=== PATIENT | male | born 1960 | race Caucasian/White ===

== ENCOUNTER 2017-12-04 13:35 | Emergency (ER) | payer BC, OTHER ==
--- NOTE | 2017-12-04 15:00 | Emergency Department Record ---
History of Present Illness - General Chief complaint: Flank Pain Stated complaint: RT SIDE KIDNEY STONE Time Seen by Provider: 12/04/17 14:55 Source: Patient, RN notes reviewed Mode of Arrival: Ambulatory - History of Present Illness Initial comments: right flank pain and history of kidney stones and it has been on and off for 2 months and he has not seen his DrPrakash in 20 years. - Related Data Previous Rx's Medication Instructions Recorded Hydrocodone/Acetaminophen [[place] 1 each PO Q6HR #14 tablet 12/04/17 5-325 Tablet] Allergies Allergy/AdvReac Type Severity Reaction Status Date / Time No Known Drug Allergies Allergy Verified 12/04/17 15:08 Review of Systems Reviewed: No additional complaints except as noted below Constitutional: Reports: As per HPI. Denies: Chills, Fever, Malaise, Night sweats, Weakness, Weight change Eyes: Reports: As per HPI. Denies: Eye discharge, Eye pain, Photophobia, Vision change ENT: Reports: As per HPI. Denies: Congestion, Dental pain, Ear pain, Epistaxis , Hearing loss, Throat pain Respiratory: Reports: As per HPI. Denies: Cough, Dyspnea, Hemoptysis, Stridor, Wheezes Cardiovascular: Reports: As per HPI. Denies: Arrhythmia, Chest pain, Dyspnea on exertion, Edema, Murmurs, Orthopnea, Palpitations, Paroxysmal nocturnal dyspnea, Rheumatic Fever, Syncope Endocrine: Reports: As per HPI. Denies: Fatigue, Heat or cold intolerance, Polydipsia, Polyuria Gastrointestinal: Reports: As per HPI, Abdominal pain. Denies: Constipation, Diarrhea, Hematemesis, Hematochezia, Melena, Nausea, Vomiting Genitourinary: Reports: As per HPI. Denies: Dysuria, Frequency, Hematuria, Incontinence, Retention, Testicular pain, Testicular mass, Urgency Musculoskeletal: Reports: As per HPI. Denies: Arthralgia, Back pain, Gout, Joint swelling, Myalgia, Neck pain Skin: Reports: As per HPI. Denies: Bruising, Change in color, Change in hair/ nails, Lesions, Pruritus, Rash Neurological: Reports: As per HPI. Denies: Abnormal gait, Confusion, Headache, Numbness, Paresthesias, Seizure, Tingling, Tremors, Vertigo, Weakness Psychiatric: Reports: As per HPI. Denies: Anxiety, Auditory hallucinations, Depression, Homicidal thoughts, Suicidal thoughts, Visual hallucinations Hematological/Lymphatic: Reports: As per HPI. Denies: Anemia, Blood Clots, Easy bleeding, Easy bruising, Swollen glands Physical Exam - General General Appearance: Alert, Oriented x3, Cooperative, No acute distress - Head Head exam: Normal inspection - Eye Eye exam: Normal appearance, PERRL Pupils: Normal accommodation - ENT ENT exam: Normal exam, Mucous membranes moist, Normal external ear exam, Normal orophraynx, TM's normal bilaterally Ear exam: Normal external inspection. negative: External canal tenderness Nasal Exam: Normal inspection. negative: Discharge, Sinus tenderness Mouth exam: Normal external inspection, Tongue normal Teeth exam: Normal inspection. negative: Dental caries Throat exam: Normal inspection. negative: Tonsillar erythema, Tonsillar exudate - Neck Neck exam: Normal inspection, Full ROM. negative: Tenderness - Respiratory Respiratory exam: Normal lung sounds bilaterally. negative: Respiratory distress - Cardiovascular Cardiovascular Exam: Regular rate, Normal rhythm, Normal heart sounds - GI/Abdominal GI/Abdominal exam: Soft, Normal bowel sounds, Tenderness (right flank pain) - Rectal Rectal exam: Deferred - exam: Deferred - Extremities Extremities exam: Normal inspection, Full ROM, Normal capillary refill. negative: Tenderness - Back Back exam: Reports: Normal inspection, Full ROM. Denies: Muscle spasm, Rash noted, Tenderness - Neurological Neurological exam: Alert, Normal gait, Oriented X3, Reflexes normal - Psychiatric Psychiatric exam: Normal affect, Normal mood - Skin Skin exam: Dry, Intact, Normal color, Warm Course - Reevaluation(s) Reevaluation #1: discussed case with Dr. 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 Xiong on return fever or vomiting or severe pain Prescriptions: Hydrocodone/Acetaminophen [[place] 5-325 Tablet] 1 each PO Q6HR #14 tablet Forms: Patient Portal Access Time of Disposition: 16:52 Quality - Quality Measures Quality Measures: N/A - Blood Pressure Screening Does Patient Have Any of the Following: No Blood Pressure Classification: Hypertensive Reading Systolic Measurement: 138 Diastolic Measurement: 100 Screening for High Blood Pressure: < First Hypertensive BP, F/U Documented > [ G8950] First Hypertensive Follow-up Interventions: Referral to alternative/primary care provider.
[2017-12-04 15:53] LABS: URINE APPEARANCE CLEAR; URINE BILIRUBIN NEGATIVE (NEGATIVE); URINE BLOOD MODERATE (NEGATIVE); URINE COLOR YELLOW; URINE GLUCOSE (UA) NEGATIVE (NEGATIVE); URINE KETONE TRACE (NEGATIVE); URINE LEUKOCYTE ESTERASE TRACE (NEGATIVE); URINE NITRITE NEGATIVE (NEGATIVE); URINE UROBILINOGEN 0.2 E.U./dL (0.20 - 1.00)
[2017-12-04 15:54] LABS: BASO % 1.1 % (0-6); EOS % 0.4 % (0-6); GRAN % 60.4 % (47-80); HEMATOCRIT 47.1 % (42.0-52.0); HEMOGLOBIN 15.9 gm/dl (14.0-18.0); LYMPH % 24.3 % (16-45); MEAN CELL VOLUME 98.5 fl (81-97); MEAN CORPUSCULAR HEMOGLOBIN 33.3 pg (27-33); MEAN CORPUSCULAR HGB CONC 33.8 g/dl (32-36); MEAN PLATELET VOLUME 8.4 fl (7.4-10.4); MONO % 13.8 % (0-9); PLATELET COUNT 214 K/uL (130-400); RED BLOOD COUNT 4.78 M/uL (4.40-5.70); RED CELL DISTRIBUTION WIDTH 12.2 % (11.5-14.5); WHITE BLOOD COUNT W/O DIFF 2.7 K/uL (4.2-12.2)
[2017-12-04 16:03] LABS: URINE MUCUS MODERATE; URINE RBC 36 - 50 (NONE SEEN)
[2017-12-04 16:05] LABS: BLOOD UREA NITROGEN 15 mg/dL (6-20); CREATININE 0.8 mg/dL (0.7-1.2); EST GLOMERULAR FILTRATION RATE > 60 mL/min
[2017-12-04 16:06] LABS: TOTAL PROTEIN 7.3 g/dL (6.6-8.7)
[2017-12-04 16:08] LABS: GLUCOSE,RANDOM 97 mg/dL (74-109)
[2017-12-04 16:10] LABS: ALT/SGPT 22 U/L (<41)
[2017-12-04 16:11] LABS: ALBUMIN 4.3 g/dL (4.0-5.0); ALKALINE PHOSPHATASE 69 U/L (40-129); AST/SGOT 29 U/L (10.0-50.0); BILIRUBIN,DIRECT < 0.2 mg/dL (0-0.3); LIPASE 27 U/L (13-60)
--- NOTE | 2017-12-06 08:41 | CT SCAN REPORT ---
EXAM: CT OF THE ABDOMEN AND PELVIS WITHOUT CONTRAST HISTORY: RIGHT FLANK PAIN. TECHNIQUE: CT of the abdomen and pelvis was performed without oral or IV contrast. This limits evaluation of bowel and solid visceral organs. Comparison: None. FINDINGS: Limited evaluation of the lung bases shows emphysematous changes bilaterally. The osseous structures are grossly intact. Limited evaluation of the liver, spleen, adrenal glands, and pancreas is unremarkable. Nonobstructing staghorn type calculus of the left kidney with maximal diameter 10.3 mm. There is a large calculus measuring 14.5 mm in the region of the right UPJ with mild right sided hydronephrosis. In addition there are multiple other nonobstructing calculi in the inferior pole of the right kidney. No other definitive urinary tract calculi. There is a large amount of stool in the colon. The urinary bladder is not distended. Subjective urinary bladder wall thickening. Multiple calcifications of the prostate. Correlate with PSA levels. The appendix is not well seen. No pericecal inflammation. The gallbladder is present. IMPRESSION: 1. NONOBSTRUCTING RENAL CALCULI BILATERALLY. IN ADDITION THERE IS A 14.5 MM RIGHT UPJ CALCULUS WITH MILD RIGHT HYDRONEPHROSIS. 2. SUBJECTIVE URINARY BLADDER WALL THICKENING. 3. LARGE AMOUNT OF STOOL IN THE COLON. 4. MULTIPLE CALCIFICATIONS OF THE PROSTATE. CORRELATE WITH PSA LEVELS. JOB NUMBER: [id number] [facility]
== END 2017-12-04 17:02 | disposition home or self-care (01) ==
LOC: ER 13:35
DX: N13.2 Hydronephrosis with renal and ureteral calculous obstruction (principal); Z87.442 Personal history of urinary calculi
CPT/HCPCS: 74176; 80048; 80076; 81001; 83690; 85025; 99283; 99284

== ENCOUNTER 2018-08-14 14:13 | Emergency (ER) | payer BC, OTHER ==
--- NOTE | 2018-08-14 14:37 | Emergency Department Record ---
History of Present Illness - General Chief Complaint: Back Pain/Injury Stated Complaint: PAIN IN LOWER BACK Time Seen by Provider: 08/14/18 14:20 Source: Patient Mode of Arrival: Ambulatory Limitations: No limitations - History of Present Illness Initial Comments: The patient is here due to mild L lower back pain and flank pain for the last 6 days. The pain is sharp and stabbing and is not associated with nausea, vomiting , fever, hematuria, or dysuria. The patient has had kidney stones in the past similar to this. He also denies any abdominal pain or diarrhea. MD Complaint: Back pain Onset/Timin -: Days(s) Associated Symptoms: Denies other symptoms - Related Data Previous Rx's Medication Instructions Recorded Cephalexin [Keflex] 500 mg PO QID #28 cap 08/14/18 Naproxen [Naprosyn] 500 mg PO BID #14 tablet. 08/14/18 Allergies Allergy/AdvReac Type Severity Reaction Status Date / Time No Known Drug Allergies Allergy Verified 12/04/17 15:08 Travel Screening - Travel/Exposure Within Last 30 Days Have you traveled within the last 30 days?: No - Travel/Exposure Within Last Year Have you traveled outside the [place] in the last year?: No - Additonal Travel Details Have you been exposed to anyone with a communicable illness?: No - Travel Symptoms Symptom Screening: None Review of Systems Constitutional: Denies: Chills, Fever Eyes: Denies: Eye discharge ENT: Denies: Congestion Respiratory: Denies: Cough, Dyspnea Past Medical History - SOCIAL HISTORY Smoking Status: Never smoker Alcohol Use: None Drug Use: None - RESPIRATORY Hx Respiratory Disorders: No - CARDIOVASCULAR Hx Cardio Disorders: No - NEURO Hx Neuro Disorders: No - GI Hx GI Disorders: No - Hx Genitourinary Disorders: Yes Hx Kidney Stones: Yes - ENDOCRINE Hx Endocrine Disorders: No - MUSCULOSKELETAL Hx Musculoskeletal Disorders: No - PSYCH Hx Psych Problems: No - HEMATOLOGY/ONCOLOGY Hx Hematology/Oncology Disorders: No Family Medical History Any Significant Family History?: No Hx Heart Disease: Father Hx Kidney Disease: Father Physical Exam - General General Appearance: Alert, Oriented x3, Cooperative, No acute distress (The patient is very calm and comfortable in appearance.) - Head Head exam: Atraumatic, Normocephalic, Normal inspection - Eye Eye exam: Normal appearance, PERRL, EOMI - ENT Throat exam: Normal inspection. negative: Tonsillar erythema, Tonsillar exudate - Neck Neck exam: Normal inspection, Full ROM. negative: Tenderness - Respiratory Respiratory exam: Normal lung sounds bilaterally. negative: Respiratory distress - Cardiovascular Cardiovascular Exam: Regular rate, Normal rhythm, Normal heart sounds - GI/Abdominal GI/Abdominal exam: Soft, Normal bowel sounds. negative: Tenderness - Extremities Extremities exam: Normal inspection, Full ROM, Normal capillary refill. negative: Tenderness - Back Back exam: Reports: Normal inspection, Paraspinal tenderness (The pain is very reproducible with palpation over the L lower lumbar area.). Denies: Vertebral tenderness - Neurological Neurological exam: Alert. negative: Motor sensory deficit Course Vital Signs 08/14/18 14:17 Temperature 98.5 F Pulse Rate 88 Respiratory 18 Rate Blood Pressure 145/96 Pulse Ox 99 - Reevaluation(s) Reevaluation #1: The patient is doing well at this time and is pain free. He denies any fever, chills, or vomiting. I did discuss the large stones in the kidney and ureters with the blockage on the L with the patient and the need for f/u. I also did discuss the case at length with Dr. Tobar (Urology) and due to the fact the patient is pain free, has no fever, or WBC elevation, he would like to see the patient in the office at 8:30 am tomorrow. The patient agrees with the plan and will comply. I also did discuss the need to return for any worsening pain, fever , vomiting, or difficulty urinating. 08/14/18 16:11 Medical Decision Making - Data Complexity MDM Data: Labs Ordered and/or Reviewed, X-Ray Ordered and/or Reviewed - Lab Data Result diagrams: 08/14/18 14:55 08/14/18 14:55 - Radiology Data Radiology results: Report reviewed (Abd CT: 04/30/17 L UPJ calculus with hydro and perinephric stranding. Large stones in R kidney with no hydro.) Disposition Disposition: Discharge Clinical Impression: Ureteral stone with hydronephrosis Disposition: Home, Self-Care Condition: (2) Stable Instructions: Ureteral Stones (ED) Additional Instructions: Please drink plenty of fluids and take Naprosyn for pain. Please also take the Keflex as directed. Please see Dr. Tobar at the [facility] at 8:30 am tomorrow in [place]. Return to the ER for any worsening pain, fever, vomiting, or decreased urine output. Prescriptions: Cephalexin [Keflex] 500 mg PO QID #28 cap Naproxen [Naprosyn] 500 mg PO BID #14 tablet. Referrals: YANE TOBAR [] - Forms: Patient Portal Access Time of Disposition: 16:16 Quality - Quality Measures Quality Measures: N/A - Blood Pressure Screening View Details: Yes Does Patient Have Any of the Following: No Blood Pressure Classification: Hypertensive Reading Systolic Measurement: 156 Diastolic Measurement: 94 Screening for High Blood Pressure: < First Hypertensive BP, F/U Documented > [ G8950] First Hypertensive Follow-up Interventions: Referral to alternative/primary care provider.
[2018-08-14 14:58] LABS: HEMATOCRIT 41.2 % (42.0-52.0); HEMOGLOBIN 14.4 gm/dl (14.0-18.0); MEAN CELL VOLUME 94.9 fl (81-97); MEAN PLATELET VOLUME 8.4 fl (7.4-10.4); PLATELET COUNT 294 K/uL (130-400); RED BLOOD COUNT 4.34 M/uL (4.40-5.70); URINE APPEARANCE CLEAR; URINE BILIRUBIN NEGATIVE (NEGATIVE); URINE BLOOD LARGE (NEGATIVE); URINE COLOR YELLOW; URINE GLUCOSE (UA) NEGATIVE (NEGATIVE); URINE KETONE NEGATIVE (NEGATIVE); URINE LEUKOCYTE ESTERASE SMALL (NEGATIVE); URINE NITRITE NEGATIVE (NEGATIVE); URINE UROBILINOGEN 0.2 E.U./dL (0.20 - 1.00); WHITE BLOOD COUNT W/O DIFF 7.9 K/uL (4.2-12.2)
[2018-08-14 14:59] LABS: MEAN CORPUSCULAR HEMOGLOBIN 33.1 pg (27-33)
[2018-08-14 15:07] LABS: BLOOD UREA NITROGEN 23 mg/dL (6-20); CREATININE 1.2 mg/dL (0.7-1.2); EST GLOMERULAR FILTRATION RATE > 60 mL/min
[2018-08-14 15:08] LABS: URINE BACTERIA 1+
[2018-08-14 15:10] LABS: GLUCOSE,RANDOM 100 mg/dL (74-109)
[2018-08-14] MEDS ORDERED: CEFTRIAXONE 1GM/50ML BAG 1 GM/50 ML BAG IVPB ONE (15:10)
[2018-08-14] MEDS ORDERED: KETOROLAC 30 MG/ML VIAL IVP ONE (15:13)
--- NOTE | 2018-08-18 08:54 | CT SCAN REPORT ---
EXAM: CT OF THE ABDOMEN AND PELVIS WITHOUT CONTRAST HISTORY: LEFT FLANK PAIN FOR SIX DAYS. TECHNIQUE: Thin collimation helical CT examination of the abdomen and pelvis was performed without oral or intravenous contrast administration. Lack of oral and IV contrast utilization limits evaluation of the bowel and solid viscera respectively. FINDINGS: There has been interval migration of the previously demonstrated large calculus in the lower pole of the left kidney to the level of the left ureteropelvic junction. This causes severe left hydronephrosis and there is moderate perinephric fat stranding. This calculus measures approximately 11 x 7 x 17 mm. There is redemonstration of a large stone within the right renal collecting system pelvis. This does not cause obstruction. This measures approximately 14 x 17 x 10 mm. There are two stones within the lower pole of the right kidney with the largest measuring 6 mm in diameter. No other nephrolithiasis. The right renal collecting system is not dilated. Evaluation of the urinary bladder is limited by lack of distention. No pelvic mass or adenopathy. There is a small amount of free fluid in the pelvis and right abdomen. No gross bowel dilatation nor bowel wall thickening. The appendix is not visualized with confidence. There is a large amount of stool within the colon. No new focal abnormality demonstrated in the liver, spleen, pancreas, nor adrenal glands. The gallbladder is unremarkable and no biliary ductal dilatation is seen. Levoconvex curvature of the lumbar spine is redemonstrated. No new lytic or blastic bone lesion. There is again noted a small focus of sclerosis in the right superior pubic ramus. This is nonspecific, but likely a bone island. There is elevation of the left hemidiaphragm. The lung bases are grossly clear. No pleural or pericardial effusion. IMPRESSION: 1. INTERVAL MIGRATION OF THE PREVIOUSLY DEMONSTRATED LARGE CALCULUS IN THE LOWER POLE OF THE LEFT KIDNEY TO THE LEVEL OF THE LEFT URETEROPELVIC JUNCTION WHERE IT CAUSES OBSTRUCTION WITH SEVERE LEFT HYDRONEPHROSIS AND MODERATE PERINEPHRIC FAT STRANDING. THIS CALCULUS MEASURES 11 X 7 X 17 MM. 2. LARGE CALCULUS AGAIN NOTED IN THE RIGHT RENAL COLLECTING SYSTEM PELVIS WITHOUT GROSS OBSTRUCTION. NONOBSTRUCTING CALCULI IN THE LOWER POLE OF THE RIGHT KIDNEY. 3. SMALL VOLUME OF ASCITES OF UNCERTAIN ETIOLOGY. 4. LARGE AMOUNT OF STOOL WITHIN THE COLON. JOB NUMBER: [id number] [facility]
== END 2018-08-14 16:43 | disposition home or self-care (01) ==
LOC: ER 14:13
DX: N13.2 Hydronephrosis with renal and ureteral calculous obstruction (principal); Z87.442 Personal history of urinary calculi
CPT/HCPCS: 99284 ×2; 96365; 96375; 80048; 81001; 85027; 74176; J1885; J0696